=== PATIENT | female | born 1945 | race Caucasian/White ===

== ENCOUNTER → 2016-05-16 | Outpatient (CLI) | payer OTHER, MEDICARE ==
[2016-05-16 12:46] LABS: HEMATOCRIT 44.8 % (37.0-47.0); MEAN CORPUSCULAR HEMOGLOBIN 31.8 PG (27-31); MEAN CORPUSCULAR HGB CONC 33.5 g/dL (33-37); MEAN PLATELET VOLUME 9.8 FL (7.4-12.2); RDW COEFFICIENT OF VARIATION 15.9 % (11.5-14.5); RED BLOOD COUNT 4.72 10^6/uL (4.20-5.40); WHITE BLOOD COUNT 7.69 10^3/uL (4.8-10.8)
[2016-05-16 12:49] LABS: BILIRUBIN,TOTAL 1.3 mg/dL (0.3-1.2); TOTAL PROTEIN 7.7 g/dL (6.1-8.0)
== END ==
LOC: LAB 12:06
PROVIDERS: ATTEND Specialist
DX: M06.89 Other specified rheumatoid arthritis, multiple sites (principal); Z79.899 Other long term (current) drug therapy
CPT/HCPCS: 36415; 80076; 85027

== ENCOUNTER → 2016-06-11 | Outpatient (CLI) | payer OTHER, MEDICARE ==
[2016-06-11 11:52] LABS: HEMATOCRIT 45.3 % (37.0-47.0); HEMOGLOBIN 14.7 g/dL (12.0-16.0); MEAN CORPUSCULAR HEMOGLOBIN 30.6 PG (27-31); MEAN CORPUSCULAR HGB CONC 32.5 g/dL (33-37); MEAN PLATELET VOLUME 9.8 FL (7.4-12.2); RED BLOOD COUNT 4.8 10^6/uL (4.20-5.40)
[2016-06-11 11:58] LABS: SERUM ALBUMIN 4.1 g/dL (3.5-4.8)
== END ==
LOC: LAB 11:25
PROVIDERS: ATTEND Specialist
DX: M06.89 Other specified rheumatoid arthritis, multiple sites (principal); Z79.899 Other long term (current) drug therapy
CPT/HCPCS: 36415; 80076; 85027; 99213